=== PATIENT | female | born 2005 | race Hispanic/Latino ===

== ENCOUNTER 2023-02-06 00:09 | Emergency (ER) | payer OTHER ==
[2023-02-06 00:37] LABS: #Basophils 0.1 thou/uL (0.0-0.2); #Eosinphils 0.2 thou/uL (0.0-0.7); #Lymphocytes 2.7 thou/uL (1.20-3.40); #Monocytes 0.6 thou/uL (0.11-0.59); #Neutrophils 4.4 thou/uL (1.40-6.50); %Eosinophils 1.9 % (0.0-10.0); %Monocytes 7.8 % (0.0-4.0); %Neutrophils 55.3 % (31.0-61.0); Hemoglobin 13.4 g/dL (12.0-16.0); Mean Corpuscular HGB CONC 34.2 g/dL (32.0-36.0); Mean Corpuscular Hemoglobin 30.3 pg (25.0-35.0); Mean Corpuscular Volume 88.7 fl (78.0-98.0); Mean Platelet Volume 9.3 fL (7.4-10.4); Platelet Count 184 10x3/uL (130-400); RBC Distribution Width 11.9 % (11.5-14.5); Red Blood Cell (RBC) Count 4.43 mill/uL (4.00-5.20)
[2023-02-06 00:58] LABS: ALT (SGPT) 10 U/L (8-55); AST (SGOT) 17 U/L (5-30); Albumin 4.5 g/dL (3.5-5.0); Alkaline Phosphatase 74 U/L (40-100); Anion Gap 13 mmol/L (10-20); BUN (Urea Nitrogen) 14 mg/dL (8.4-21.0); Bilirubin, Total 0.3 mg/dL (0.2-1.2); Calc. Creatinine Clearance 0 mL/min (70-130); Calcium 9.5 mg/dL (7.8-10.44); Carbon Dioxide 21 mmol/L (22-29); Chloride 110 mmol/L (98-107); Estimated GFR 103; Globulin 2.5 g/dL (2.4-3.5); Glucose 96 mg/dL (70-105); Potassium 3.8 mmol/L (3.5-5.1); Sodium 140 mmol/L (136-145)
[2023-02-06] MEDS ORDERED: Mag-Al 1200 mg/1200 mg/30 ML UDCUP ONE (01:51)
[2023-02-06] MEDS ORDERED: Lidocaine Viscous Sol 2% 15 ml UD Cup ONE (01:51)
== END 2023-02-06 02:11 | disposition home or self-care (01) ==
LOC: ERS 00:09
DX: R06.02 Shortness of breath (principal); R07.89 Other chest pain
CPT/HCPCS: 36415; 71045; 80053; 84484; 85025; 93005

== ENCOUNTER 2025-08-04 18:44 | Emergency (ER) | payer OTHER ==
[2025-08-04] MEDS ORDERED: Ibuprofen 200 MG TAB ONE (20:24)
[2025-08-04] MEDS ORDERED: Cyclobenzaprine 10 MG TAB ONE (20:24)
== END 2025-08-04 20:30 | disposition home or self-care (01) ==
LOC: ERS 18:44
DX: S16.1XXA Strain of muscle, fascia and tendon at neck level, initial encounter (principal); S70.02XA Contusion of left hip, initial encounter; S40.012A Contusion of left shoulder, initial encounter; G62.9 Polyneuropathy, unspecified; V43.52XA Car driver injured in collision with other type car in traffic accident, initial encounter
CPT/HCPCS: 99283